=== PATIENT | male | born 1990 | race Caucasian/White ===

== ENCOUNTER 2024-01-04 09:37 | Emergency (ER) | payer OTHER, SELFPAY ==
[2024-01-04 09:48] VITALS: BP 143/73
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
[2024-01-04 11:18] VITALS: BP 129/84
== END 2024-01-04 11:19 | disposition home or self-care (01) ==
LOC: EMR 09:37
PROVIDERS: EMERGENCY PHYSICIAN Emergency Medicine; FAMILY PHYSICIAN General Practice
DX: S06.0XAA Concussion with loss of consciousness status unknown, initial encounter (principal); V49.40XA Driver injured in collision with unspecified motor vehicles in traffic accident, initial encounter
CPT/HCPCS: 99284; 70450

== ENCOUNTER → 2024-01-17 13:55 | Outpatient (REF) | payer OTHER, SELFPAY | LOC: RAD 13:55 | DX: M54.2 Cervicalgia (principal); M25.511 Pain in right shoulder | CPT/HCPCS: 72050; 73030 ==

== ENCOUNTER → 2025-06-12 07:44 | Outpatient (REF) | payer OTHER, SELFPAY | LOC: RCS 07:44 | PROVIDERS: ATTENDING PHYSICIAN Family Medicine | DX: R00.2 Palpitations (principal) | CPT/HCPCS: 93225; 93226 ==

== ENCOUNTER → 2025-06-21 08:14 | Outpatient (REF) | payer OTHER, SELFPAY | LOC: RCS 08:14 | PROVIDERS: ATTENDING PHYSICIAN Family Medicine | DX: R00.2 Palpitations (principal) | CPT/HCPCS: 93306 ==